=== PATIENT | female | born 1950 | race Caucasian/White ===

== ENCOUNTER → 2021-01-16 | Outpatient (CLI) | payer MEDICARE, OTHER ==
--- NOTE | 2021-01-18 15:01 | SLEEPCENT ---
DIAGNOSTIC NOCTURNAL POLYSOMNOGRAPHY DATE: 01/16/2021 ORDERED BY: JAHAIRA Ramsey Nocturnal polysomnography was performed for evaluation of sleep physiology in this patient with a prior history of sleep apnea and multiple medical comorbidities. 8 hours and 37 minutes of data were reviewed. There were 423 minutes of sleep identified. Sleep latency was normal at 28 minutes. REM sleep was delayed at 181 minutes. Sleep architecture showed poor progression. There were two REM cycles noted. Overall sleep efficiency was 82.8%. The electrocardiogram showed a sinus rhythm with an average heart rate of 60 beats per minute; rate range 40 to 80. EEG showed some coarsening in background. No focal events were identified. There were normal waveforms for wake and sleep. There 419 respiratory events identified of 10 seconds in duration or greater for an apnea-hypopnea index of 59.4. The events were not exclusive to sleep stage, more frequent but not exclusive in the supine posture. Arousals from respiratory events occurred 7.8 times per hour and oxygen desaturations were seen into the 80s. There was some activity in the limb leads, but arousals related to limb events were few. IMPRESSION: Severe obstructive sleep apnea syndrome (G47.33), apnea-hypopnea index 59.4. RECOMMENDATION: The patient should be encouraged to return to [facility]. In the interim, alcohol and sedative avoidance should be practiced and caution exercised during the operation of motor vehicles.
== END ==
LOC: M SLEEP 20:00
PROVIDERS: ATTEND Nurse Practitioner Family
DX: G47.33 Obstructive sleep apnea (adult) (pediatric) (principal)

== ENCOUNTER → 2021-03-28 | Outpatient (CLI) | payer MEDICARE, OTHER ==
--- NOTE | 2021-03-29 18:44 | SLEEPCENT ---
DATE: 03/28/2021 ORDERED BY: LACIE Ramsey Nocturnal polysomnography was performed for the titration of pressure therapy in this patient with obstructive sleep apnea syndrome, apnea-hypopnea index of 59.4. For testing, the patient was fit with a [employer] Airfit F20 full face mask of medium size, 4 cm of water pressure were applied to the circuit and the lights were extinguished. Nine hours and 11 minutes of data were reviewed. There were 320.5 minutes of sleep identified. Sleep latency was mildly prolonged at 43.5 minutes. REM latency was prolonged at 322.5 minutes. Sleep architecture showed some poor progression. There was one REM cycle late in the study. Overall sleep efficiency was 58.8%. The electrocardiogram showed small complexes but appeared to be a sinus rhythm. Average heart rate was 58 beats per minute. EEG showed normal waveforms for wake and sleep. Persistent respiratory events prompted increases in CPAP. Best sleep was seen on a CPAP pressure of +8. Later in the study in an effort to improve sleep progression a bilevel device was tried, but in retrospect best sleep was seen on a CPAP pressure of +8. IMPRESSION: Obstructive sleep apnea syndrome (G47.33). RECOMMENDATION: Nightly use of pressure therapy 8 cm of water. cc: BRIA MARTINEZ MD
== END ==
LOC: M SLEEP 20:00
PROVIDERS: ATTEND Nurse Practitioner Family
DX: G47.33 Obstructive sleep apnea (adult) (pediatric) (principal)